=== PATIENT | female | born 1965 | race African-American/Black ===

== ENCOUNTER 2025-03-03 09:53 | Outpatient (OUT) | payer MEDICARE, SELFPAY ==
--- NOTE | 2025-03-03 10:04 | CT_ITS ---
The [address] [address] Patient Name: ELLIE DUKE MRN: [id number] date: 1965 Sex: F Assigned Patient Location: CT Current Patient Location: CT Accession/Order Number: [id number] Exam Date: 03/03/2025 10:10 Report Date: 03/03/2025 10:58 At the request of: CHRISTINA HERNANDEZ DO, MS Procedure: CT lung screening low-dose LOW-DOSE SCREENING CHEST CT WITHOUT CONTRAST COMPARISON: None CLINICAL DATA: Current smoker of cigars for approximately 10 years Spiral axial unenhanced low-dose images were obtained through the chest. Images were reviewed using both narrow and wide window settings. This CT exam was performed using one or more following dose reduction techniques: Automated exposure control, adjustment of the mA and/or kV according to patient size, or use of iterative reconstruction technique. The heart is normal in size. A trace amount of pericardial fluid is seen. There is coronary artery disease. Mild plaque is visualized at the aortic arch, descending aorta and proximal great vessels. There is no aneurysm. There are small paratracheal, AP window, pre and subcarinal lymph nodes. Minor degenerative changes are seen at the spine. There is obstructive lung disease with airspace lucencies and small blebs. There is mild atelectasis and/or scarring. No consolidation, pleural effusion or pneumothorax is identified. There is a 5 - 6 mm nodule within the left lower lobe abutting the fissure which is probably an intrapulmonary lymph node. There is also a 5 - 6 mm nodule within the left upper lobe (axial image 136). No pulmonary nodularity is noted on the right. Limited imaging through the upper abdomen shows no contributory findings. CT/CT lung screening low-dose IMPRESSION: MILD OBSTRUCTIVE LUNG DISEASE. SCARRING AND/OR ATELECTASIS. LEFT-SIDED PULMONARY NODULARITY. Lung RADS category 2 - benign Twelve-month low-dose CT follow-up suggested Impression dictated by: Monika Segovia M.D. 03/03/2025 10:58 AM Dictation Location: [place] [id number] Electronically authenticated by: [id number] Date: 03/03/2025 10:58
== END 2025-03-03 09:54 | disposition home or self-care (01) ==
LOC: CT 09:58
PROVIDERS: PCP Student in an Organized Health Care Education/Training Program; Visit Provider Student in an Organized Health Care Education/Training Program
DX: R63.4 Abnormal weight loss (principal); F17.200 Nicotine dependence, unspecified, uncomplicated; F17.290 Nicotine dependence, other tobacco product, uncomplicated; Z12.2 Encounter for screening for malignant neoplasm of respiratory organs; R91.8 Other nonspecific abnormal finding of lung field
CPT/HCPCS: 71271